=== PATIENT | male | born 1980 | race Two or more races ===

== ENCOUNTER 2023-07-31 08:15 | Emergency (ER) | payer OTHER ==
[~2023-07-31] VITALS: Ht 190.5 cm; Wt 117.9 kg
[~2023-07-31 08:15] MED LIST: COLACE100 MG PO; NEURONTIN300 MG PO; TRAM1TAB98 PO
[2023-07-31] MEDS ORDERED: CIPROFLOXACIN IN 5 % DEXTROSE 400 MG/200 ML PIGGYBAG IV ONE ×2 (09:11→09:15)
[2023-07-31] MEDS ORDERED: METRONIDAZOLE/SODIUM CHLORIDE 500 MG/100 ML PIGGYBACK IV ONE ×2 (09:11→09:15)
[2023-07-31] MEDS ORDERED: MEPERIDINE HCL/PF 50 MG/ML VIAL IM ONE (09:15)
[2023-07-31 09:58] LABS: HEMATOCRIT 48.2 % (39.0-48.0); HEMOGLOBIN 17.1 g/dL (13-16.00); MEAN CELL VOLUME 79.3 fL (80.0-100.00); MEAN CORPUSCULAR HEMOGLOBIN 28.1 pg (27.00-32.0); MEAN CORPUSCULAR HGB CONC 35.4 g/dl (32.0-36.0); PLATELET COUNT 236 K/uL (150-450); RED BLOOD COUNT 6.08 M/uL (4.00-6.00); RED CELL DISTRIBUTION WIDTH 13.4 % (11.5-14.5)
[2023-07-31] MEDS ORDERED: LIDOCAINE HCL 1% 10ML VIAL ONE (12:27)
== END 2023-07-31 11:31 | disposition home or self-care (01) ==
LOC: ER 08:16
PROVIDERS: Emergency Medicine
DX: K64.8 Other hemorrhoids (principal)